=== PATIENT | male | born 1995 | race Caucasian/White ===

== ENCOUNTER 2021-11-16 11:27 | Emergency (ER) | payer BC ==
[~2021-11-16] VITALS: Ht 195.6 cm; Wt 119.8 kg
[2021-11-16 11:53] VITALS: BP 132/86
[2021-11-16] MEDS ORDERED: DIPHTH,PERTUSS(ACELL),TET TOX 0.5 ML DISP.SYRIN. VAX IM ONE (12:30)
--- NOTE | 2021-11-16 12:55 | PHYS DOC ---
Past History Past Surgical History: No Surgical History Alcohol Use: Occasionally Additional Alcohol Information: had a beer last noc Adult General Chief Complaint Chief Complaint: BACK INJURY HPI HPI Patient is a 26-year-old male patient presenting to the ED today with a puncture wound to the right low back. Patient started on a drill bit, he states it went in and out from the right posterior lower abdomen. He is complaining of mild pain to the region especially when walking and sitting Review of Systems Review of Systems Constitutional: Denies fever or chills [] GI: Denies abdominal pain, nausea, vomiting, bloody stools or diarrhea [] : Denies dysuria or hematuria [] Musculoskeletal: Positive puncture wound to the right low back with pain to the region Integument: Denies rash or skin lesions [] Neurologic: Denies headache, focal weakness or sensory changes [] All other systems were reviewed and found to be within normal limits, except as documented in this note. Current Medications Current Medications Current Medications Medications (Trade) Dose Ordered Sig/Del Start Time Stop Time Status Last Admin Dose Admin Diphtheria/ Tetanus/Acell Pertussis (Boostrix) 0.5 ml ONCE ONCE 11/16/21 12:30 11/16/21 12:31 DC Allergies Allergies Allergies Coded Allergies Type Severity Reaction Last Updated Verified No Known Drug Allergies 11/16/21 No Physical Exam Physical Exam Constitutional: Well developed, well nourished, no acute distress, non-toxic appearance. [] Abdomen: Bowel sounds normal, soft, no tenderness, no masses, no pulsatile masses. [] Skin: Right posterior lower abdomen fatty pad with an open wound approx. 0.4X0.4 cm, no active bleeding. No subcutaneous air from the area. Back: No tenderness, no CVA tenderness. [] Extremities: No tenderness, no cyanosis, no clubbing, ROM intact, no edema. [] Neurologic: Alert and oriented X 3, normal motor function, normal sensory function, no focal deficits noted. [] Psychologic: Affect normal, judgement normal, mood normal. [] Current Patient Data Vital Signs Vital Signs Date Time Temp Pulse Resp B/P (MAP) Pulse Ox O2 Delivery O2 Flow Rate FiO2 11/16/21 11:53 99.0 74 18 132/86 (101) 96 Room Air EKG EKG [] Radiology/Procedures Radiology/Procedures []PROCEDURE: CT ABDOMEN PELVIS WO CONTRAST CT scan of the abdomen and pelvis without contrast 11/16/2021 CLINICAL HISTORY: The patient sat on a drill with puncture injury involving the right flank. TECHNIQUE: Unenhanced, contiguous, 3 mm axial sections were obtained through the abdomen and pelvis. One or more of the following individualized dose reduction techniques were utilized for this study: 1. Automated exposure control. 2. Adjustment of the mA and/or kV according to patient size. 3. Use of iterative reconstruction technique. FINDINGS: Images through the lung bases demonstrate minimal dependent subsegmental atelectasis bilaterally. The liver, spleen, adrenal glands and kidneys are within normal limits. The abdominal aorta tapers normally. The gallbladder is well-distended. No free fluid or free air is seen within the abdomen. There is no evidence of bowel obstruction. A small fat-containing umbilical hernia is seen which measures 2.2 cm in size. Images through the pelvis demonstrate the urinary bladder distended with urine. No free fluid is seen. No pelvic hematoma is noted. Calcifications are seen within the pelvis consistent with phleboliths. Subcutaneous emphysema is seen within the subcutaneous fat posterior lateral aspect of the anterior abdominal wall superior to the right iliac crest. Increased attenuation is seen within the subcutaneous fat. These findings consistent with patient's history of injury to this region. No well-defined hematoma or abnormal fluid collection is seen. No extension to involve the intra-abdominal contents is noted. Minimal S-shaped curvature of the thoracolumbar spine is noted. The osseous structures are grossly intact. IMPRESSION: Soft tissue injury is seen involving the subcutaneous fat of the right inferior posterior lateral abdominal wall as discussed above. No acute intra-abdominal or pelvic abnormality is seen. Electronically signed by: Eugenio Prince MD (11/16/2021 1:14 PM) [id number] DICTATED AND SIGNED BY: EUGENIO PRINCE MD DATE: 11/16/21 [id number] CC: NIKKO BEAR [employer]; PCP,NO ~MTH0 0 Heart Score C/O Chest Pain: N/A Risk Factors: Risk Factors: DM, Current or recent (<one month) smoker, HTN, HLP, family history of CAD, obesity. Risk Scores: Risk Factors: DM, Current or recent (<one month) smoker, HTN, HLP, family history of CAD, obesity. Course & Med Decision Making Course & Med Decision Making Pertinent Labs and Imaging studies reviewed. (See chart for details) This is a 26-year-old male patient presented to the ED today with puncture wound to the right posterior abdomen, he sat on a drill bit.Patient tried saying he cannot walk. Informed patient this injury is not significant to cause any walking issues. There is no broken bone. There is no significant tissue injury or muscle damage. CT of the abdomen pelvis-Soft tissue injury is seen involving the subcutaneous fat of the right inferior posterior lateral abdominal wall. No acute intra- abdominal or pelvic abnormality is seen. I went to give patient results. states the ED staff is treating him bad. She states he is bleeding heavily and no one is doing anything. Nursing staff and already cleaned the area and put a dressing. I reopened the dressing nothing is soaking through. Active bleeding had stopped. Reassured her there is no active bleeding, this injury is on subcutaneous tissue and it is not bleeding right now. She still complains stating she has never been told by too many people in the emergency room how small the wound is and how it needs nothing than dressing. She states that wound is very deep and may start bleeding again informed informed if it bleeds she needs to put direct pressure to the wound and if bleeding does not stop in 30 minutes bring patient to the ED. She requested the wound to be changed again. I reevaluated the wound again and removed the initial dressing by the nurse. It had trace amount of blood, nothing was bleeding through. I requested patient to sit in a chair to make it easier for me and the to look at the wound, patient walked by himself and sat on the chair. I Made sure the is behind the patient to look at the wound. I pushed around wound several times to trigger bleeding no blood or drainage came out of it. I cleaned the wound again and covered it with nonstick dressing and pressure dressing, continued complain stating the ED staff is treating patient bad and they will never come back to this emergency room. requested dressing changes supplies to be given to them for home use. I gave them dressing changes supplies. I educated her on how to change the dressing Prescription for hydrocodone and Flexeril and mupirocin send to the pharmacy. is still not happy continues to have unreasonable complaints. Requested the name of the pharmacy. Prescriptions were sent to the pharmacy [id number] patient eloped from the ED with the before receiving his D/c paperwork. Liam Disclaimer Liam Disclaimer This electronic medical record was generated, in whole or in part, using a voice recognition dictation system. Departure Departure: Impression: Primary Impression: Puncture wound of abdominal wall Disposition: HOME / SELF CARE / HOMELESS Condition: STABLE Referrals: PCP,NO (PCP) follow up with your doctor in one week Patient Instructions: Puncture Wound Additional Instructions: You were evaluated in the emergency room for a puncture wound, your CT of the abdomen and pelvis is negative for any acute findings. Your puncture wound did not harm anything in your abdomen and pelvis. Keep the dressing on for 24 ho urs, after 24 hours you can remove the dressing and wash the area once a day with regular soap and water. Please apply Mupirocin to it twice a day for 3 times a day for 7 days. Please cover the area with nonstick dressing, 4 x 4 and white pressure dressing we provided you. Ensure you change the dressing daily for 24 hours and after three days if it is not bleeding or draining leave it open to air. Scripts Mupirocin (MUPIROCIN) 22 Gm Oint...g. 1 ERIC TP TID, #22 GM Prov: NIKKO BEAR SHERRY 11/16/21 Hydrocodone Bit/Acetaminophen (HYDROCODONE-APAP 5-325 ) 1 Each Tablet 1 TAB PO PRN Q6HRS PRN for PAIN, #14 TAB 0 Refills Prov: NIKKO BEAR Girish POWELL 11/16/21 Cyclobenzaprine Hcl (CYCLOBENZAPRINE HCL) 10 Mg Tablet 1 TAB PO TID, #30 TAB Prov: ALEJANDRARONMaileNIKKO Girish POWELL 11/16/21 Problem Qualifiers Primary Impression: Puncture wound of abdominal wall Encounter type: initial encounter Qualified Codes: S31.139A - Puncture wound of abdominal wall without foreign body, unspecified quadrant without penetration into peritoneal cavity, initial encounter ALEJANDRARONMaileNIKKO Stout APRN Nov 16, 2021 12:55
--- NOTE | 2021-11-16 13:16 | RAD ---
CT scan of the abdomen and pelvis without contrast 11/16/2021 CLINICAL HISTORY: The patient sat on a drill with puncture injury involving the right flank. TECHNIQUE: Unenhanced, contiguous, 3 mm axial sections were obtained through the abdomen and pelvis. One or more of the following individualized dose reduction techniques were utilized for this study: 1. Automated exposure control. 2. Adjustment of the mA and/or kV according to patient size. 3. Use of iterative reconstruction technique. FINDINGS: Images through the lung bases demonstrate minimal dependent subsegmental atelectasis bilate rally. The liver, spleen, adrenal glands and kidneys are within normal limits. The abdominal aorta tapers normally. The gallbladder is well-distended. No free fluid or free air is seen within the abdomen. There is no evidence of bowel obstruction. A small fat-containing umbilical hernia is seen which measures 2.2 cm in size. Images through the pelvis demonstrate the urinary bladder distended with urine. No free fluid is seen . No pelvic hematoma is noted. Calcifications are seen within the pelvis consistent with phleboliths. Subcutaneous emphysema is seen within the subcutaneous fat posterior lateral aspect of the anterior a bdominal wall superior to the right iliac crest. Increased attenuation is seen within the subcutaneou s fat. These findings consistent with patient's history of injury to this region. No well-defined hem atoma or abnormal fluid collection is seen. No extension to involve the intra-abdominal contents is n oted. Minimal S-shaped curvature of the thoracolumbar spine is noted. The osseous structures are grossly in tact. IMPRESSION: Soft tissue injury is seen involving the subcutaneous fat of the right inferior posterior lateral abdominal wall as discussed above. No acute intra-abdominal or pelvic abnormality is seen. Electronically signed by: Eugenio Prince MD (11/16/2021 1:14 PM) [id number]
[2021-11-16] MEDS ORDERED: CYCL10TA19 PO (14:40)
[2021-11-16] MEDS ORDERED: MUPI22OI2 TP (14:40)
[2021-11-16] MEDS ORDERED: HYDR-2155 PO (14:40)
[2021-11-16] MEDS ORDERED: HYDROcodone/APAP 5/325MG 1 TAB TABLET PO ONE (14:45)
== END 2021-11-16 14:53 | disposition home or self-care (01) ==
LOC: ER 11:27
DX: S31.139A Puncture wound of abdominal wall without foreign body, unspecified quadrant without penetration into peritoneal cavity, initial encounter (principal); X58.XXXA Exposure to other specified factors, initial encounter; Y93.89 Activity, other specified; Y92.89 Other specified places as the place of occurrence of the external cause; Y99.8 Other external cause status
CPT/HCPCS: 74176; 90471; 90715; 99284